=== PATIENT | female | born 1990 | race Caucasian/White ===

== ENCOUNTER 2019-06-07 21:31 | Emergency (ER) | payer SELFPAY ==
[~2019-06-07] VITALS: Ht 162.6 cm; Wt 98.0 kg
--- NOTE | 2019-06-07 21:37 | PHYS DOC ---
Adult General Chief Complaint Chief Complaint: ".. I ve got this severe dental pain... it my [place] teeth on both side... now I got swelling and pain in my neck.... I got a scheduled dental appointment at the pain and swelling fever and got me worried.... I had bad teeth and that's really does not have dentures but the wisdom teeth grew in later..." HPI HPI Patient is a 29 year old female who presents with above hx and complaints of dental pain. Patient does have swelling of bilateral sides of face lymphadenopathy. Patient has had all her upper teeth pulled except her wisdom teeth which grew in after extraction of her other teeth.. Patient does have lower incisors and canines. There is a family history of poor dentition- genetically speaking. Patient denies any immunosuppression, travel or specific ill contacts. Is up-to-date with tetanus. Review of Systems Review of Systems Constitutional: Complaints of fever Eyes: Denies change in visual acuity, redness, or eye pain [] HENT: Denies nasal congestion or sore throat []complaints of upper wisdom teeth pain and infection. Respiratory: Denies cough or shortness of breath [] Cardiovascular: No additional information not addressed in HPI [] GI: Denies abdominal pain, nausea, vomiting, bloody stools or diarrhea [] : Denies dysuria or hematuria [] Musculoskeletal: Denies back pain or joint pain [] Integument: Denies rash or skin lesions [] Neurologic: Denies headache, focal weakness or sensory changes [] Endocrine: Denies polyuria or polydipsia [] All other systems were reviewed and found to be within normal limits, except as documented in this note. Family History Family History Family history multiple family nerves have early tooth loss Current Medications Current Medications See nursing for home meds Allergies Allergies No known allergies to drugs. Physical Exam Physical Exam Constitutional: moderate acute distress, non-toxic appearance. [] HENT: Normocephalic, atraumatic, bilateral external ears normal, oropharynx moist, no oral exudates, nose normal. Facial edema and adenopathy at angle mandible. No trismus. Impacted wisdom teeth 1 and 16. Eyes: PERRLA, EOMI, conjunctiva normal, no discharge. [] Neck: Normal range of motion, no tenderness, supple, no stridor. [] Cardiovascular:Heart rate regular rhythm, no murmur [] Lungs & Thorax: Bilateral breath sounds equal at apexes on auscultation [] Abdomen: Bowel sounds normal, soft, no tenderness, no masses, no pulsatile masses. [] Skin: Warm, dry, no erythema, no rash. [] Back: No tenderness, no CVA tenderness. [] Extremities: No tenderness, no cyanosis, no clubbing, ROM intact, no edema. [] Neurologic: Alert and oriented X 3, normal motor function, normal sensory function, no focal deficits noted. [] Psychologic: Affect normal, judgement normal, mood normal. [] EKG EKG [] Radiology/Procedures Radiology/Procedures [] Course & Med Decision Making Course & Med Decision Making Pertinent Labs and Imaging studies reviewed. (See chart for details). Patient take Keflex 500 mg 3 times a day for next 10 days. Follow-up with dentist/oral surgeon. Tylenol and ibuprofen for pain. For marked pain may take Vicoprofen up 4 times a day. Must follow-up 1. Dental pain 2. Impacted wisdom teeth 1 and 16 - possible abscess 3. Facial cellulitis [] Dragon Disclaimer Dragon Disclaimer This electronic medical record was generated, in whole or in part, using a voice recognition dictation system. Departure Departure: Disposition: 01 HOME/RESIDENCE PRIOR TO ADM Condition: STABLE Scripts Hydrocodone/Ibuprofen (HYDROCODONE-IBUPROFEN 7.5-200 ) 1 Each Tablet 1 TAB PO PRN Q6HRS PRN for PAIN, #30 TAB 0 Refills Prov: KRISTA VARGAS MD 06/07/19 Cephalexin (KEFLEX) 500 Mg Capsule 500 MG PO TID for impacted wisdom / infection for 10 Days, BOTTLE Prov: KRISTA VARGAS MD 06/07/19 [place]in Disclaimer This chart was dictated in whole or in part using Voice Recognition software in a busy, high-work load, and often noisy Emergency Department environment. It may contain unintended and wholly unrecognized errors or omissions. KRISTA VARGAS MD Jun 07, 2019 21:37
[2019-06-07] MEDS ORDERED: cefTRIAXone IM 1 GM VIAL IM ONE (22:00)
[2019-06-07] MEDS ORDERED: HYDR-1179 PO (22:09)
[2019-06-07] MEDS ORDERED: CEPH-264 PO (22:09)
[2019-06-07 22:24] LABS: BARBITURATES NEG (NEG); BENZODIAZEPINES NEG (NEG); CANNABINOIDS POS (NEG); COCAINE NEG (NEG); METHADONE NEG (NEG); OPIATES NEG (NEG); PHENCYCLIDINE NEG (NEG)
[2019-06-07 22:26] LABS: AMPHETAMINE/METHAMPHETAMINE NEG (NEG)
[2019-06-07 22:29] LABS: BACTERIA,URINE FEW /HPF (0-FEW); BILIRUBIN,URINE NEG (NEG); CLARITY,URINE HAZY; COLOR,URINE YELLOW; GLUCOSE,URINE NEG (NEG); NITRITE,URINE NEG (NEG); RBC,URINE 0 /HPF (0-2); UROBILINOGEN,URINE 0.2 mg/dL (0.2 mg/dL)
[2019-06-07 22:30] LABS: SQUAMOUS EPITHELIAL CELL,UR FEW /LPF
[2019-06-07] MEDS ORDERED: KETOROLAC 60 MG/2 ML VIAL. IM ONE (22:30)
[2019-06-07] MEDS ORDERED: LIDOCAINE 1% Multi-Dose 20 ML VIAL. ONE (23:26)
[2019-06-07 23:30] VITALS: BP 156/96
[2019-06-09] MEDS ORDERED: RANI-376 PO (02:56)
[2019-06-09] MEDS ORDERED: ONDA8TAB9 PO (02:56)
== END 2019-06-08 | disposition home or self-care (01) ==
LOC: ER 21:31
DX: L03.211 Cellulitis of face (principal); K08.89 Other specified disorders of teeth and supporting structures
CPT/HCPCS: 36415; 80307; 81001; 81025; 96372; 99284; J0696; J1885

== ENCOUNTER 2019-06-08 22:37 | Emergency (ER) | payer SELFPAY ==
[~2019-06-08] VITALS: Ht 162.6 cm; Wt 107.0 kg
[~2019-06-08 22:37] MED LIST: CEPH-264 PO; HYDR-1179 PO
--- NOTE | 2019-06-08 22:45 | PHYS DOC ---
Past History Past Medical History: No Pertinent History, Anxiety, GERD, Other Past Surgical History: Cholecystectomy Smoking: Cigarettes Alcohol Use: Occasionally Drug Use: Marijuana, Opiates Adult General Chief Complaint Chief Complaint: " .. I am nauseated.. .. I ve had some tingle in my both my hands.. then I had this chest discomfort for past 3 to 4 days.. I just want to be checked out... ".." I just vomited up my pizza" HPI HPI Patient is a 29 year old female who presents with above hx and complaints of chest discomfort. Patient localizes her chest discomfort along the left sternal border. Patient does have some epigastric tenderness on palpation. Discomfort Has been somewhat constant the past 3-4 days. However the last one one half hours seems to be worse. Pain is worse with deep breaths and cough. Pain is reproducible palpation of sternal border. Patient denies history of previous cardiac issues. Patient does smoke both marijuana and tobacco. Patient denies any history of DVTs with her or family members or other coagulopathy. Patient has been nauseated since eating pizza at 1830 hrs. tonight. Patient did vomit 2. Patient had rebound to epigastric area. Patient does have a history of GERD. Patient did not receive a flu vaccination this season. Review of Systems Review of Systems Constitutional: Denies fever or chills [] Eyes: Denies change in visual acuity, redness, or eye pain [] HENT: Denies nasal congestion or sore throat [] Respiratory: Denies cough or shortness of breath [] Cardiovascular: No additional information not addressed in HPI [] GI: History of epigastric abdominal pain, nausea, vomiting,. Denies bloody stools or diarrhea [] : Denies dysuria or hematuria [] Musculoskeletal: Denies back pain or joint pain [] Integument: Denies rash or skin lesions [] Neurologic: Denies headache, focal weakness or sensory changes [] Endocrine: Denies polyuria or polydipsia [] All other systems were reviewed and found to be within normal limits, except as documented in this note. Family History Family History Noncontributory Current Medications Current Medications See nursing for home medications Allergies Allergies Allergies Coded Allergies Type Severity Reaction Last Updated Verified Penicillins Allergy Unknown 06/08/19 Yes Physical Exam Physical Exam Constitutional: Well developed, well nourished, no acute distress, non-toxic appearance. [] HENT: Normocephalic, atraumatic, bilateral external ears normal, oropharynx moist, no oral exudates, nose normal. [] Eyes: PERRLA, EOMI, conjunctiva normal, no discharge. [] Neck: Normal range of motion, no tenderness, supple, no stridor. [] Cardiovascular:Heart rate regular rhythm, no murmur [] Lungs & Thorax: Bilateral breath sounds equal apex with scattered wheezes on[] Abdomen: Bowel sounds normal, soft, mild epigastric tenderness, no masses, no pulsatile masses. [] Down to epigastric area. Obese Skin: Warm, dry, no erythema, no rash. [] Back: No tenderness, no CVA tenderness. [] Extremities: No tenderness, no cyanosis, no clubbing, ROM intact, no edema. [] Psoas sign. No cording shaded. Neurologic: Alert and oriented X 3, normal motor function, normal sensory function, no focal deficits noted. [] Psychologic: Affect very anxious, judgement normal, mood normal. [] EKG EKG My interpretation of EKG at 2247 hrs. shows a sinus rhythm at 99 bpm. No findings acute STEMI with contralateral changes. My interpretation repeat EKG at 0306 hrs. show sinus rhythm at 86 bpm. No acute morphology. No acute interval changes.[] Radiology/Procedures Radiology/Procedures [][place] [address] IMAGING REPORT Signed PATIENT: BUCKY TUBBS ACCOUNT: [id number] : 1990 LOCATION: ER AGE: 29 SEX: F EXAM STATUS: REG ER ORD. PHYSICIAN: KRISTA VARGAS MD REASON: Chest pain, heartburn PROCEDURE: CHEST PA & LATERAL CHEST PA LATERAL History: Chest pain, heartburn. Comparison: None. Findings: The cardiac silhouette is normal. The right paratracheal stripe is prominent but the outer margin is concave. Appearance could be due to vasculature. Pulmonary vasculature is normal. The lungs are clear. No pleural effusion or pneumothorax is seen. There is no acute bone abnormality. IMPRESSION: No acute cardiopulmonary process. Electronically signed by: Bandar Dennison MD (06/09/2019 2:14 AM) [id number] DICTATED AND SIGNED BY: BANDAR DENNISON MD DATE: 06/09/19 0214 CC: KRISTA VARGAS MD; PCP,NO ~ Course & Med Decision Making Course & Med Decision Making Pertinent Labs and Imaging studies reviewed. (See chart for details) Patient to take Zantac 50 mg twice day. Patient follow-up primary care. Patient return if any concerns. Recommended patient stay on a clear fluid diet if active nausea and vomiting. Must follow-up primary care. Patient encouraged not to smoke. Patient return if any concerns. At time of discharge patient requesting no further workup or admission.. Risks discussed. Impression- 1. GERD- 2. Mild elevation leukocytes 13.9 3. Viral syndrome 4. Chest wall pain 5. Tobacco and marijuana use 6. History of anxiety disorder 7. Drug screen positive for opiates marijuana [] Dragon Disclaimer Dragon Disclaimer This electronic medical record was generated, in whole or in part, using a voice recognition dictation system. Departure Departure: Disposition: 01 HOME/RESIDENCE PRIOR TO ADM Condition: STABLE Referrals: PCP,NO (PCP) Scripts Ondansetron Hcl (ZOFRAN) 8 Mg Tablet 8 MG PO QIDPRN PRN for Active nausea and vomiting., #30 BOT Prov: KRISTA VARGAS MD 06/09/19 Ranitidine Hcl (ZANTAC) 150 Mg Tablet 150 MG PO BID for GERD for 30 Days, #60 TAB Prov: KRISTA VARGAS MD 06/09/19 Dragon Disclaimer This chart was dictated in whole or in part using Voice Recognition software in a busy, high-work load, and often noisy Emergency Department environment. It may contain unintended and wholly unrecognized errors or omissions. KRISTA VARGAS MD Jun 08, 2019 22:45
[2019-06-08] MEDS ORDERED: ASPIRIN 81 MG TAB.CHEW PO ONE (23:00)
[2019-06-08] MEDS ORDERED: IV RINGERS SOLUTION,LACTATED 1,000 ML IV SCH (23:00)
[2019-06-09 00:34] LABS: BACTERIA,URINE 0 /HPF (0-FEW); BILIRUBIN,URINE NEG (NEG); CLARITY,URINE CLEAR; COLOR,URINE YELLOW; GLUCOSE,URINE NEG (NEG); NITRITE,URINE NEG (NEG); RBC,URINE RARE /HPF (0-2); SQUAMOUS EPITHELIAL CELL,UR FEW /LPF; UROBILINOGEN,URINE 0.2 mg/dL (0.2 mg/dL); WBC,URINE RARE /HPF (0-4)
[2019-06-09 00:35] LABS: BARBITURATES NEG (NEG); BENZODIAZEPINES NEG (NEG); CANNABINOIDS POS (NEG); COCAINE NEG (NEG); METHADONE NEG (NEG); OPIATES POS (NEG); PHENCYCLIDINE NEG (NEG)
[2019-06-09 00:38] LABS: AMPHETAMINE/METHAMPHETAMINE NEG (NEG)
[2019-06-09 00:57] LABS: BASO # 0.1 x10^3/uL (0.0-0.2); BASO % 1 % (0-3); EOS # 0.1 x10^3/uL (0.0-0.7); EOS % 1 % (0-3); HEMATOCRIT 36.7 % (36.0-47.0); LYMPH # 3.6 x10^3/uL (1.0-4.8); LYMPH % 26 % (24-48); MEAN CORPUSCULAR HEMOGLOBIN 29 pg (25-35); MEAN CORPUSCULAR HGB CONC 33 g/dL (31-37); MEAN CORPUSCULAR VOLUME 88 fL (79-100); MONO % 8 % (0-9); NEUT % 65 % (31-73); PLATELET COUNT 273 x10^3/uL (140-400); RED BLOOD COUNT 4.16 x10^6/uL (3.50-5.40); WHITE BLOOD COUNT 13.9 x10^3/uL (4.0-11.0)
[2019-06-09 01:07] LABS: ANION GAP 7 (6-14); BLOOD UREA NITROGEN 11 mg/dL (7-20); CALCIUM 8.6 mg/dL (8.5-10.1); CARBON DIOXIDE 29 mmol/L (21-32); CHLORIDE 106 mmol/L (98-107); CREATININE 0.9 mg/dL (0.6-1.0); GFR 74.6; GLUCOSE 95 mg/dL (70-99); POTASSIUM 3.6 mmol/L (3.5-5.1); SODIUM 142 mmol/L (136-145)
[2019-06-09 01:10] LABS: PREG TEST PT QUAL NEGATIVE (NEG)
[2019-06-09 01:20] LABS: ALBUMIN 3.2 g/dL (3.4-5.0); ALK PHOS 33 U/L (46-116); ALT (SGPT) 28 U/L (14-59); AST (SGOT) 21 U/L (15-37); LIPASE 73 U/L (73-393); TOTAL BILIRUBIN 0.1 mg/dL (0.2-1.0); TOTAL PROTEIN 7.4 g/dL (6.4-8.2)
[2019-06-09 01:22] LABS: DIRECT BILIRUBIN < 0.1 mg/dL (0.0-0.2)
[2019-06-09] MEDS ORDERED: MAGNESIUM HYDROXIDE 2,400 MG/30 ML ORAL.SUSP. PO ONE (01:30)
[2019-06-09] MEDS ORDERED: SUCRALFATE 1 GM TABLET. PO ONE (01:30)
[2019-06-09] MEDS ORDERED: FAMOTIDINE 20 MG/2 ML VIAL IVP ONE (01:30)
--- NOTE | 2019-06-09 02:17 | RAD ---
CHEST PA LATERAL History: Chest pain, heartburn. Comparison: None. Findings: The cardiac silhouette is normal. The right paratracheal stripe is prominent but the outer margin is concave. Appearance could be due to vasculature. Pulmonary vasculature is normal. The lungs are clear. No pleural effusion or pneumothorax is seen. There is no acute bone abnormality. IMPRESSION: No acute cardiopulmonary process. Electronically signed by: Bandar Dennison MD (06/09/2019 2:14 AM) [id number]
--- NOTE | 2019-06-09 02:27 | EKG ---
[address] [address] Test Date: 2019-06-08 Test Time: 22:47:47 Pat Name: BUCKY TUBBS Department: Room: Gender: F Program Professional: : 1990 Requested By: KRISTA VARGAS Order Number: [id number] Reading MD: Measurements Intervals [place] Rate: 99 P: 18 ID: [id number] QRS: 33 QRSD: 86 T: 35 QT: 334 QTc: 434 Interpretive Statements SINUS RHYTHM NO SPECIFIC ECG ABNORMALITIES RI6.01 No previous ECG available for comparison
[2019-06-09] MEDS ORDERED: RANI-376 PO (02:56)
[2019-06-09] MEDS ORDERED: ONDA8TAB9 PO (02:56)
[2019-06-09] MEDS ORDERED: KETOROLAC 30 MG/ML VIAL. IVP ONE (03:00)
--- NOTE | 2019-06-09 03:11 | EKG ---
[address] [address] Test Date: 2019-06-09 Test Time: 03:06:17 Pat Name: BUCKY TUBBS Department: Room: Gender: F Paediatrician: : 1990 Requested By: KRISTA VARGAS Order Number: [id number] Reading MD: Measurements Intervals [place] Rate: 86 P: 34 CT: 194 QRS: 32 QRSD: 86 T: 32 QT: 368 QTc: 443 Interpretive Statements SINUS RHYTHM NO SPECIFIC ECG ABNORMALITIES RI6.01 No previous ECG available for comparison
[2019-06-09 03:59] LABS: INFLUENZA A PATIENT NEGATIVE (NEGATIVE); INFLUENZA B PATIENT NEGATIVE (NEGATIVE)
[2019-06-09 05:15] VITALS: BP 124/73
[2019-06-09 14:30] LABS: THYROID STIM HORMONE (TSH) 2.161 uIU/mL (0.358-3.740)
== END 2019-06-09 06:56 | disposition home or self-care (01) ==
LOC: ER 22:37
DX: K21.9 Gastro-esophageal reflux disease without esophagitis (principal); B34.9 Viral infection, unspecified; R07.89 Other chest pain; D72.829 Elevated white blood cell count, unspecified; F11.10 Opioid abuse, uncomplicated; F12.10 Cannabis abuse, uncomplicated; F17.210 Nicotine dependence, cigarettes, uncomplicated; Z90.49 Acquired absence of other specified parts of digestive tract; Z88.0 Allergy status to penicillin
CPT/HCPCS: 36415; 71046; 80048; 80061; 80076; 80307; 81001; 82550; 83690; 83735; 83880; 84443; 84484; 84703; 85025; 85379; 85610; 85730; 87804; 93005; 96361; 96374; 96375; 99285; J1885; J3490; J7120

== ENCOUNTER 2019-07-30 10:58 | Emergency (ER) | payer SELFPAY ==
[~2019-07-30] VITALS: Ht 162.6 cm; Wt 107.0 kg
[2019-07-30 10:58] VITALS: BP 145/89
[~2019-07-30 10:58] MED LIST changes: +ONDA8TAB9 PO; +RANI-376 PO
[2019-07-30] MEDS ORDERED: AMOX1TAB61 PO (11:43)
[2019-07-30] MEDS ORDERED: NAPROXEN 500 MG TABLET PO ONE (11:45)
[2019-07-30] MEDS ORDERED: ACETAMINOPHEN 325 MG TABLET PO ONE (11:45)
--- NOTE | 2019-07-30 11:45 | PHYS DOC ---
Past History Past Medical History: Anxiety, GERD, Other Past Surgical History: Cholecystectomy Smoking: Cigarettes Alcohol Use: Occasionally Drug Use: Marijuana, Opiates Adult General Chief Complaint Chief Complaint: DENTAL PROBLEM HPI HPI 29-year-old female presents with left lower dental pain. Patient's been having this pain for 3 days. She started a facial swelling yesterday. It is worse today. It feels like it is all over her lower teeth. She cannot get into a dentist because of coronavirus and a dentist that are open are too expensive. She is concerned about infection. She denies fever chills. She has no other complaints this time. She has not taken anything for pain. Review of Systems Review of Systems Constitutional: Denies fever or chills [] Eyes: Denies change in visual acuity, redness, or eye pain [] HENT: Left-sided dental pain. Denies nasal congestion or sore throat [] Respiratory: Denies cough or shortness of breath [] Cardiovascular: No additional information not addressed in HPI [] GI: Denies abdominal pain, nausea, vomiting, bloody stools or diarrhea [] : Denies dysuria or hematuria [] Musculoskeletal: Denies back pain or joint pain [] Integument: Denies rash or skin lesions [] Neurologic: Denies headache, focal weakness or sensory changes [] Endocrine: Denies polyuria or polydipsia [] All other systems were reviewed and found to be within normal limits, except as documented in this note. Allergies Allergies Allergies Coded Allergies Type Severity Reaction Last Updated Verified Penicillins Allergy Unknown 06/08/19 Yes Physical Exam Physical Exam Constitutional: Well developed, well nourished, no acute distress, non-toxic appearance. [] HENT: Tenderness of the left lower gums, cavity of tooth #18. No palpable abscess. Normocephalic, atraumatic, bilateral external ears normal, oropharynx moist, no oral exudates, nose normal. [] Eyes: PERRLA, EOMI, conjunctiva normal, no discharge. [] Neck: Normal range of motion, no tenderness, supple, no stridor. [] Cardiovascular:Heart rate regular rhythm, no murmur [] Lungs & Thorax: Bilateral breath sounds clear to auscultation [] Abdomen: Bowel sounds normal, soft, no tenderness, no masses, no pulsatile masses. [] Skin: Warm, dry, no erythema, no rash. [] Back: No tenderness, no CVA tenderness. [] Extremities: No tenderness, no cyanosis, no clubbing, ROM intact, no edema. [] Neurologic: Alert and oriented X 3, normal motor function, normal sensory function, no focal deficits noted. [] Psychologic: Affect normal, judgement normal, mood normal. [] Current Patient Data Vital Signs Vital Signs Date Time Temp Pulse Resp B/P (MAP) Pulse Ox O2 Delivery O2 Flow Rate FiO2 07/30/19 10:58 98.1 96 18 145/89 (107) 97 Room Air EKG EKG [] Radiology/Procedures Radiology/Procedures [] Course & Med Decision Making Course & Med Decision Making Pertinent Labs and Imaging studies reviewed. (See chart for details) The patient appears to have an infected tooth. I will treat her with Augmentin. She is stable for discharge at this time. [] Dragon Disclaimer Dragon Disclaimer This electronic medical record was generated, in whole or in part, using a voice recognition dictation system. Departure Departure: Impression: Primary Impression: Infected tooth Disposition: HOME, SELF-CARE Condition: STABLE Referrals: PCP,NO (PCP) Patient Instructions: Abscessed Tooth, [id number] Scripts Amoxicillin/Potassium Clav (AUGMENTIN 875-125 TABLET) 1 Each Tablet 1 TAB PO BID for infected tooth for 7 Days, #14 TAB 0 Refills Prov: JEANNE SILVEIRA DO 07/30/19 JEANNE SILVEIRA DO Jul 30, 2019 11:44
== END 2019-07-30 11:55 | disposition home or self-care (01) ==
LOC: ER 10:58
DX: K04.7 Periapical abscess without sinus (principal); K02.9 Dental caries, unspecified; K21.9 Gastro-esophageal reflux disease without esophagitis; F17.210 Nicotine dependence, cigarettes, uncomplicated; Z88.0 Allergy status to penicillin
CPT/HCPCS: 99283